=== PATIENT | female | born 1995 | race Two or more races ===

== ENCOUNTER 2016-10-01 22:48 | Emergency (ER) | payer SELFPAY ==
[2016-10-01 23:23] LABS: PH,URINE 6.5 (5.0-8.0); URINE BILIRUBIN NEGATIVE (NEGATIVE); URINE BLOOD 2+ (NEGATIVE); URINE GLUCOSE (UA) NEGATIVE (NEGATIVE); URINE LEUKOCYTE ESTERASE 1+ (NEGATIVE); URINE NITRITE NEGATIVE (NEGATIVE); URINE PROTEIN 1+ (NEGATIVE); URINE UROBILINOGEN NORMAL (0-1 mg/dl)
[2016-10-01] MEDS ORDERED: PHENAZOPYRIDINE HCL 200 MG TABLET ONE (23:23)
[2016-10-01 23:24] LABS: URINE APPEARANCE CLOUDY; URINE COLOR YELLOW
[2016-10-01 23:26] LABS: HCG,QUALITATIVE URINE NEGATIVE
[2016-10-01 23:41] LABS: URINE BACTERIA 3+; URINE EPITHELIAL CELLS 15-20 /hpf; URINE MUCUS 1+; URINE RBC >100 /hpf; URINE WBC >100 /hpf
[2016-10-01] MEDS ORDERED: CEPHALEXIN 500 MG CAPSULE ONE (23:57)
== END 2016-10-02 00:03 | disposition home or self-care (01) ==
LOC: ED 22:48
DX: N39.0 Urinary tract infection, site not specified (principal)
CPT/HCPCS: 81025; 81001; 99283 ×2; A9270 ×2

== ENCOUNTER 2016-11-23 21:40 | Emergency (ER) | payer OTHER ==
[2016-11-24] MEDS ORDERED: IBUPROFEN 800 MG TABLET ONE (00:22)
== END 2016-11-24 00:49 | disposition home or self-care (01) ==
LOC: ED 21:40
DX: R51 Headache (principal); J06.9 Acute upper respiratory infection, unspecified
CPT/HCPCS: 99282 ×2; A9270